=== PATIENT | male | born 1960 | race Caucasian/White ===

== ENCOUNTER 2024-06-13 16:12 | Outpatient (CLI) | payer OTHER, SELFPAY | END 2024-06-13 16:13 | disposition home or self-care (01) | LOC: AMB 06-26 04:58 | PROVIDERS: PCP Family Medicine; Visit Provider Emergency Medicine Emergency Medical Services | DX: S09.90XA Unspecified injury of head, initial encounter (principal); S81.831A Puncture wound without foreign body, right lower leg, initial encounter; W17.89XA Other fall from one level to another, initial encounter; Y92.007 Garden or yard of unspecified non-institutional (private) residence as the place of occurrence of the external cause | CPT/HCPCS: A0425; A0427 ==

== ENCOUNTER 2025-03-29 10:00 | Outpatient (RCR) | payer OTHER, SELFPAY ==
--- OUTSIDE RECORDS SUMMARY | 2024-10-06 14:51 | XMS_ITS | Clinical Summary ---
Author Organization [facility] Address [address] [place] [phone] Phone Care Team Providers Care Director Of Patient Financial Services Name Role Phone Imtiaz Cohen MD Primary Care Provider [phone] Source Comments [employer] is fully rolled out on [employer]. Last update 03/09/09.[facility] Allergies Active Allergy Reactions Criticality Noted Date Comments Codeine Nausea/Vomiting 06/13/2024 Medications * Be aware that medications may not be up to date as of this document. Always verify current medications with patient. fluticasone propionate (FLONASE) 50 mcg/act nasal suspension 1 spray by Nasal route daily as needed. Active albuterol (VENTOLIN HFA;PROVENTIL HFA;PROAIR) 108 (90 BASE) mcg/act inhalation inhaler Inhale 2 puffs every 4 hours as needed. Active tab-a-brenda oral tablet Take 1 tablet by mouth daily. Active aspirin, ASA EC, 81 mg oral tabletIndicati ons:blood clot prevention Take 2 tablets (162 mg) by mouth daily. Indications: blood clot preventionEnd date 07/14 (4wks postop) 06/18/20 24 Active melatonin 3 mg oral tabletIndicati ons:Insomnia Take 1 tablet (3 mg) by mouth every twenty-four hours. Indications: Trouble SleepingGive at 1800 06/17/20 24 Active polyethylene glycol 3350 (MIRALAX;GLYCO LAX) 17 g oral packetIndicati ons:Constipati on Take 17 g by mouth daily. Indications: ConstipationTake 1 capful to 17 gm essie mixed with full glass of water every day as directed. 09/13/20 24 Active sennosides (SENOKOT) 17.2 mg oral TABSIndication s:Constipation Take 1 tablet (17.2 mg) by mouth twice daily. Indications: Constipation 06/17/20 Active traZODone (DESYREL) 50 mg oral tablet Take 1 tablet (50 mg) by mouth at bedtime as needed for Sleep. 06/19/20 Active ibuprofen (MOTRIN;ADVIL) 600 mg oral tablet Take 1 tablet (600 mg) by mouth every 6 hours as needed for Pain.Take with food 06/20/20 Active bisacodyl (DULCOLAX) 10 mg rectal suppository 1 suppository (10 mg) by Rectal route daily as needed for Constipation. 06/29/20 Active acetaminophen (TYLENOL) 325 mg oral tabletIndicati ons:Pain Take 3 tablets (975 mg) by mouth 3 times daily. Indications: Pain 06/30/20 Active GABApentin (NEURONTIN) 400 mg oral capsuleIndicat ions:postopera tive pain Take 1 capsule (400 mg) by mouth 3 times daily. Indications: postoperative pain 06/30/20 Active hydrOXYzine (ATARAX;VISTAR IL) 25 mg oral tabletIndicati ons:pain, anxiety Take 1-2 tablets (25-50 mg) by mouth every 4 hours as needed for Anxiety or Itching (or pain). Indications: pain, anxietyDiscontinue medication 07/10/24 (72 hours prior to boles catheter removal in urology clinic) 06/30/20 Active lidocaine (LIDODERM) 5% externally patchIndicatio ns:postoperati ve pain Indications: postoperative painApply patch to most painful area right hip, NOT on incision or dressing. Patch may remain in place for up to 12 hours in any 24-hour period. 07/01/20 Active tamsulosin (FLOMAX) 0.4 mg oral capsuleIndicat ions:Bladder Dysfunction Take 1 capsule (0.4 mg) by mouth daily after meal. Indications: Dysfunction of the Urinary BladderTake 30 minutes after same meal each day. Do NOT crush or chew. 90 capsule 3 07/29/20 Active Active Problems Problem Noted Date Diagnosed Date Acute urinary retention 07/29/2024 Assessment & Plan (07/29/2024 10:22 AM CDT): Patient experienced acute urinary retention following ORIF and TOM. Patient was discharged to a senior living facility at which time patient had a successful TOV. Patient since has denied any other urinary symptoms. Patient is no longer taking narcotic pain medication and is taking Flomax daily. 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 Dislocation of right hip, initial encounter ([facility] ) 06/29/2024 Adjustment disorder with anxiety 06/24/2024 Closed displaced fracture of posterior wall of right acetabulum, initial encounter ([facility]) 06/14/2024 Encounters Date Type Department Care Team Description 09/09/2024 Documentation Only Home Equipment Services 701 Imtiaz Hahn MD 08/25/2024 Telephone Case Management Gina Lombardo, RN Care Coordination 08/19/2024 Documentation Only Home Equipment Services 701 Imtiaz Hahn MD 08/18/2024 Documentation Only Home Equipment Services 701 Imtiaz Hahn MD 08/11/2024 Nurse [facility]riage [facility] [address] [place] [phone] Jeet Reyez, RN Orders 08/09/2024 Documentation Only Unspecified Department [place] Unknown, Provider 08/03/2024 11:40 AM CDT [facility] [address] [place] [phone] Darryl Nuñez MD Closed displaced fracture of posterior wall of right acetabulum, initial encounter ([facility]) (Primary Dx); History of right hip replacement; Dislocation of right hip, initial encounter ([facility]) Discharge Disposition: Discharged to home or self care 07/29/2024 11:00 AM CDT [facility] [address] [place] [phone] Shawn Lock, RADHA Acute urinary retention (Primary Dx) Discharge Disposition: Discharged to home or self care 07/20/2024 Telephone Case Management Gina Lombardo, IBAN Care Coordination 07/13/2024 1:00 PM CDT Office Visit [facility] [address] [place] [id number] Darryl Nuñez MD Closed displaced fracture of posterior wall of right acetabulum, initial encounter ([facility]) (Primary Dx); Dislocation of right hip, initial encounter ([facility]); History of right hip replacement; Dislocation of hip prosthesis, subsequent encounter Discharge Disposition: Discharged to home or self care 07/13/2024 Telephone Case Management Gina Lombardo RN Care Coordination 07/13/2024 Travel 07/12/2024 Telephone [facility] [address] [place] [phone] Shawn Lock PA-C 07/08/2024 Telephone [facility] [address] [place] [phone] Shawn Lock PA-C from Last 3 Months Immunizations Name Administration Dates Next Due COVID-19 Vaccine Monovalent (MODERNA) 12 Years and Older 07/24/2021,06/26/2021 INFLUENZA VACCINE - MDV (6 MONTHS-ADULT) 017 Influenza Vaccine 6 Months t hrough Adult - Prefilled 10/15/2023,11/04/2022,10/01/2016 Pneumococcal Conjugate, 20-V alent Vaccine (Prevnar 20) 11/04/2022 Tetanus Toxoid, Reduced Diph theroid Toxoid Acellular Pertussis 06/13/2024,01/23/2017 Zoster Recombinant Adjuvant (Shingrix) 50 Years And Greater 10/15/2023,11/04/2022 Social History Tobacco Use Types Packs/Day Years Used Date Smoking Tobacco: Never Assessed Humiliation, Afraid, Rape, and Kick questionnair e Answer Date Recorded Within the last year, have y ou been afraid of your partner or ex-partner? No 06/29/2024 Within the last year, have y ou been humiliated or emotionally abused in other ways by your partner or ex-partner? No Within the last year, have y ou been kicked, hit, slapped, or otherwise physically hurt by your partner or ex-partner? No 06/29/2024 Within the last year, have y ou been raped or forced to have any kind of sexual activity by your partner or ex-partner? No 06/29/2024 Overall Financial Resource Strain (CARDIA) Answe r Date Recorded How hard is it for you to pa y for the very basics like food, housing, medical care, and heating? Not very hard 06/29/2024 Hunger Vital Sign Answer Date Recorded Within the past 12 months, y ou worried that your food would run out before you got the money to buy more. Never true 06/29/20 Within the past 12 months, t he food you bought just didn't last and you didn't have money to get more. Never true 06/29/2024 PRAPARE - Transportation Answer Date Re corded In the past 12 months, has l ack of transportation kept you from medical appointments or from getting medications? No 06/06 In the past 12 months, has l ack of transportation kept you from meetings, work, or from getting things needed for daily living? No 06/29/2024 Housing Stability Answer Date Recorded What is your housing situation today? 3 - I have housing 06/29/2024 Sex and Gender Information Value Date Recorded Sex Assigned at Not on file Legal Sex Male 5:09 PM CDT Gender Identity Not on file Sexual Orientation Not on file Last Filed Vital Signs Vital Sign Reading Time Taken Comments Blood Pressure 137/63 07/04/2024 8:00 AM CDT Pulse 85 07/04/2024 8:00 AM CDT Temperature 36.8 C (98.2 F) 07/04/2024 8:00 AM CDT Respiratory Rate 16 07/04/2024 8:00 AM CDT Oxygen Saturation 97% 07/04/2024 8:00 AM CDT Inhaled Oxygen Concentration - - Weight 117 kg (257 lb 15 oz) 06/26/2024 11:00 AM CDT Height 167.6 cm (5' 5.98) 06/21/2024 3:20 PM CD T Body Mass Index 41.65 06/21/2024 3:20 PM CDT Plan of Treatment Upcoming Encounters Date Type Department Care Team (Late st Contact Info) Description 01/27/2025 8:00 AM CDT [facility] [address] [id number] Shawn Lock PA-C [address] [place] [id number] Scheduled Discharge Disposition: Discharged to home or self care Health Maintenance Due Date Last Done Comments CT Colonography 1960 Colonoscopy 1960 Colorectal Cancer Screening 1960 Dental Oral Exam 1960 Dental Prophylaxis 1960 Dental X-Ray: Bitewings 1960 FIT/Cologuard 1960 Hepatitis C Screening 1960 Sigmoidoscopy 1960 iFOB/FIT 1960 Periodontal Maintenance 1974 HIV Screening 1975 HEALTH MAINTENANCE PROTOCOL 1979 Imm: COVID-19 () 06/05/2024 11/04/2022, 07/24/2021, 06/26/2021 Imm: Flu (#1) 06/05/2024 10/15/2023, 10/07, 07/07/2017, Additional history exists PREVENTATIVE VISIT 10/15/2024 10/15/2023, 11/04/2022 Lipid Screening 10/15/2028 10/15/2023 Imm: DTaP/Tdap (3 - Td or Tdap) 06/13/2034 06/13/2024, 01/23/2017 Imm: Pneumonia Peds or At-Risk less than 65 years Completed 11/04/2022 Imm: Zoster Completed 10/15/2023, 11/04/2022 Imm: HPV Aged Out No longer eligi ble based on patient's age to complete this topic Imm: HepA Aged Out No longer eligi ble based on patient's age to complete this topic Imm: HepB Aged Out No longer eligi ble based on patient's age to complete this topic Imm: Hib Aged Out No longer eligi ble based on patient's age to complete this topic Imm: Meningitis Aged Out No longer el igible based on patient's age to complete this topic Medical Devices Implanted Type Area Glass Products Inspector Device Identifier Shelf Expiration Date Model / Serial / Lot 8-Hole (1179-006-08) Implanted:Qty : 1 on 06/16/2024 by Federico Gómez MD at [facility] Plate Right: Acetabulum ALYSSIA [employer]ET [id number] / / 26mm (4835-026-01) Implanted:Qty : 1 on 06/16/2024 by Federico Gómez MD at [facility] Screw/Wilfrid lt Right: Acetabulum [employer]YSS[employer]OMET [id number] / / 45mm (4835-045-07) Implanted:Qty : 1 on 06/16/2024 by Federico Gómez MD at [facility] Screw/Wilfrid lt Right: Acetabulum [employer]ET [id number] / / 50mm (4835-050-07) Implanted:Qty : 1 on 06/16/2024 by Federico Gómez MD at [facility] Screw/Wilfrdi lt Right: Acetabulum [employer]ET [id number] / / 30mm 4827-030-01 Implanted:Qty : 1 on 06/16/2024 by Federico Gómez MD at [facility] Screw/Wilfrid lt Right: Acetabulum [employer] [id number] / / 34mm 4827-034-01 Implanted:Qty : 1 on 06/16/2024 by Federico Gómez MD at [facility] Screw/Wilfrid lt Right: Acetabulum LAYSSIA [employer]ET [id number] / / 38mm 4827-038-01 Implanted:Qty : 1 on 06/16/2024 by Federico Gómez MD at [facility] Screw/Wilfrid lt Right: Acetabulum [employer]ET [id number] / / 48mm [id number] Implanted:Qty : 1 on 06/16/2024 by Federico Gómez MD at [facility] Screw/Wilfrid lt Right: Acetabulum [employer]ET [id number] / / -3 ([id number]) Implanted:Qty : 1 on 06/16/2024 by Darryl Nuñez MD at [facility] Total Joint Head Right: Hip [employer] 10/07/2033 [id number] / / [id number] 9 ([id number]) Implanted:Qty : 1 on 06/16/2024 by Darryl Nuñez MD at [facility] Total Joint Stem Right: Hip [employer] 07/12/2028 [id number] / / [id number] Spherical Head Screw,[employer] Reflec 6.5x25mm [id number] Implanted:Qty : 1 on 06/16/2024 by Darryl Nuñez MD at [facility] Right: Hip [employer] 01/01/2034 [id number] / / [id number] Spherical Head Screw,[employer] Reflec 6.5x25mm [id number] Implanted:Qty : 1 on 06/16/2024 by Darryl Nuñez MD at [facility] Right: Hip [employer] 10/04/2033 [id number] / / [id number] Spherical Head Screw,[employer] Reflec 6.5x20mm [id number] Implanted:Qty : 1 on 06/16/2024 by Darryl Nuñez MD at [facility] Right: Hip [employer] 12/14/2033 [id number] / / [id number] Cover Scr H F/Acet Cup Thrd Reflct [id number] Implanted:Qty : 1 on 06/16/2024 by Darryl Nuñez MD at [facility] Right: Hip [employer] 04/18/2029 [id number] / / [id number] Liner Acetabular Xlpe 0 Degree X 36mm Id Implanted:Qty : 1 on 06/16/2024 by Darryl Nuñez MD at [facility] Right: Hip [employer] 06/18/2031 [id number] / / [id number] Redapt Modular Shell Implanted:Qty : 1 on 06/16/2024 by Darryl Nuñez MD at [facility] Right: Hip [employer] 06/06/2033 [id number] / / [id number] Procedures Procedure Name Priority Date/Time Associated Diagnosis Comments EXTERNAL MED REC-IMAGING 08/10/2024 11:29 AM DRILL SHARPENER from Last 3 Months Results * EXTERNAL MED REC-IMAGING (08/10/2024 11:29 AM DRILL SHARPENER) Anatomical Region Laterality Modality Other Narrative 08/10/2024 11:29 AM DRILL SHARPENER Ordered by an unspecified provider. us Provider Unknown RAD CT BODY Final Result from Last 3 Months Insurance [facility]IC [facility] Advance Directives For more information, please contact: [phone] * Full Code (Latest Code Status on File) Date Activated Date Inactivated Comments 06/30/2024 11:08 AM Question Answer Comments Does the Patient have prefer ences regarding life sustaining measures (these options only apply when the patient has a pulse): No Discussed Code Status With Whom? Not discussed * Full Code Date Activated Date Inactivated Comments 06/29/2024 4:56 PM 06/29/2024 5:13 PM Question Answer Comments Does the Patient have prefer ences regarding life sustaining measures (these options only apply when the patient has a pulse): No Discussed Code Status With Whom? Patient * Full Code Date Activated Date Inactivated Comments 06/21/2024 10:43 AM 06/29/2024 4:56 PM Question Answer Comments Does the Patient have prefer ences regarding life sustaining measures (these options only apply when the patient has a pulse): No Discussed Code Status With Whom? Patient * Full Code Date Activated Date Inactivated Comments 06/14/2024 8:34 PM 06/21/2024 10:43 AM Question Answer Comments Does the Patient have prefer ences regarding life sustaining measures (these options only apply when the patient has a pulse): No Discussed Code Status With Whom? Not discussed Care Teams Director Of Patient Financial Services Relationship Specialty Start Date End Date Imtiaz Cohen MD [address] [place] [address] PCP - General Family Medicine 06/23/24
--- OUTSIDE RECORDS SUMMARY | 2024-10-06 14:52 | XMS_ITS | Clinical Summary ---
Author Organization [employer] [facility] Address [place], [place] [address] Care Team Providers Care Inner Tube Inserter Name Role Phone Imitaz Cohen MD Primary Care Provider Allergies Active Allergy Reactions Criticality Noted Date Comments Codeine Nausea Only Medium 09/24/2009 Medications Blood Pressure Monitor KitIndications: Benign essential HTN Frequency of testin times per week. 1 Each 3 Active tadalafiL (CIALIS;ADCIRCA ) 20 mg tabletIndicatio ns:Erectile dysfunction, unspecified erectile dysfunction type Take 1 Tablet (20 mg) by mouth once daily if needed for Erectile Dysfunction. Take 30 minutes before sexual activity. 10 Tablet 10 4 Active gabapentin (Neurontin) 400 mg capsule Take 400 mg by mouth three times daily. 4 Active ibuprofen (ADVIL; MOTRIN) 600 mg tablet Take 600 mg by mouth every 6 hours if needed for Pain. 4 Active acetaminophen (TYLENOL EXTRA STRGTH) 500 mg tablet Take 2 Tablets (1,000 mg) by mouth every 8 hours if needed for Pain. Max acetaminophen dose: 4000mg in 24 hrs. 4 Active tamsulosin 0.4 mg capsuleIndicati ons:Benign localized prostatic hyperplasia with lower urinary tract symptoms (LUTS) Take 1 Capsule (0.4 mg) by mouth once daily after a meal. 90 Capsule 3 4 Active Active Problems Problem Noted Date Diagnosed Date Right Acet Fracture ORIF 06/16/24 08/29/2024 Right TOM with acet ORIF 06/16/24 08/29/2024 Obesity 10/15/2023 Benign essential HTN 11/04/2022 Erectile dysfunction 11/04/2022 Suspected sleep apnea 11/04/2022 Chronic GERD 11/04/2022 Erythema nodosum 01/28/2017 Hypermetropia 05/13/2013 Resolved Problems Problem Noted Date Diagnosed Date Resolved Date Obesity, Class II, BMI 35-39.9 11/04/2022 08/29/2024 Fever 01/28/2017 11/04/2022 Rash 01/28/2017 11/04/2022 Leukocytosis 01/28/2017 11/04/2022 Anemia 01/28/2017 11/04/2022 Hyponatremia 01/28/2017 11/04/2022 Elevated transaminase level 01/28/2017 11/04/2022 Routine adult health maintenance 12/25/2016 11/04/2022 Overview (12/25/2016): Colonoscopy 12/2016 hyperplastic polyp repeat in 10 years Encounters Date Type Department Care Team Description 09/23/2024 1:30 PM STUDENT SPECIALIST Home Care Visit [facility] [address] [place] [address] Federico Coto, PT PT - OASIS DISCHARGE 09/23/2024 Travel 09/16/2024 11:30 AM STUDENT SPECIALIST Home Care Visit [facility] [address] [place] [address] Federico Coto, PT PT - HOME VISIT 09/13/2024 10:30 AM STUDENT SPECIALIST Home Care Visit [facility] [address] [place] [address] Federico Coto, PT PT - HOME VISIT 09/13/2024 Travel 09/09/2024 10:30 AM STUDENT SPECIALIST Home Care Visit [facility] [address] [place] [address] Federico Coto, PT PT - HOME VISIT 09/09/2024 Travel 09/08/[address] [id number] Imtiaz Cohen MD Questions (Physical Therapy) 09/06/2024 11:30 AM STUDENT SPECIALIST Home Care Visit [facility] [address] [place] [phone] Federico Coto, PT PT - HOME VISIT 09/02/2024 12:30 PM STUDENT SPECIALIST Home Care Visit [facility] [address] [place] [phone] Federico Coto, PT PT - HOME VISIT 08/30/2024 2:45 PM STUDENT SPECIALIST Home Care Visit [facility] [address] [place] [phone] Federico Coto, PT PT - HOME VISIT 08/29/2024 1:40 PM STUDENT SPECIALIST Office Visit [facility] [address] [place] [address] Imtiaz Cohen MD [facility] (Hospital follow up - [facility] 06/13/2024 - 07/04/2024, [facility] 07/04/2024 - 08/16/2024, broken pelvis and infection) 08/29/2024 Travel 08/26/2024 Telephone [facility] [address] [place] [address] Imtiaz Cohen MD Questions 08/24/2024 9:45 AM STUDENT SPECIALIST Home Care Visit [facility] [address] [place] [phone] Federico Coto, PT PT - OASIS START OF CARE 08/24/2024 Plan of Care Documentation [facility] [address] [place] [address] 08/24/2024 Telephone [facility] [address] [facility] [place] [address] Federico Coto, PT Home Care 08/24/2024 Travel 08/18/2024 Transcribe Orders [facility] [address] [place] [address] Belgica Chowdhury NP 08/17/2024 Transcribe Orders [facility] [address] [place] [address] Raphael Veliz MD 08/10/2024 Lab Requisition [facility] [address] [place] [address] Raphael Veliz MD from Last 3 Months Immunizations Name Administration Dates Next Due COVID-19 vaccine (Pfizer-Bio NTech 30mcg/0.3mL) 12YO+ BIVALENT PF, MDV 11/04/2022 Influenza, IIV4 10/15/2023,11/04/2022,10/01/2016 Influenza, IIV4 (=>6mos) MDV 07/07/2017 Pneumococcal Conj 20-valent (Prevnar 20) 023 Tdap 01/23/2017 Zoster (Shingrix-RZV, recombinant) 10/15/2023, Family History Medical History Relation Name Comments Diabetes type II Brother Dementia Father in 80's or late 70's Cancer-prostate Maternal Uncle Stomach cancer Mother fatal Lung cancer Paternal Grandfather cancer Cancer-colon No Family History Relation Name Status Comments Brother Father Maternal Uncle Alive Mother Paternal Grandfather Social History Tobacco Use Types Packs/Day Years Used Date Smoking Tobacco: Former Cigarettes 1 10 0 10/05/1988 - 10/05/1998 Smokeless Tobacco: Never Tobacco Cessation:Counseling Given: No Alcohol Use Standard Drinks/Week Comments Yes 0 (1 standard drink = 0.6 oz pur e alcohol) occassional [facility] Utilities Answer Date Recorded Do you have trouble paying f or utilities (for example, heat, electricity, water, phone)? Yes 05/02/2024 PHQ-2 Answer Date Recorded PHQ-2 TOTAL SCORE 0 10/15/2023 Social Connections Answer Date Recorded Do you often feel lonely or isolated from those around you? 0 05/02/2024 Financial Resource Strain Answer Date R ecorded Difficulty of Paying Living Expenses 3 05/02/2024 Difficulty of Paying Living Expenses Not on file 05/02/2024 Food Insecurity Answer Date Recorded Do you worry your food will run out before you are able to buy more? 1 05/02/2024 Transportation Needs Answer Date Record ed Does lack of transportation keep you from medica l appointments? 1 05/02/2024 Does lack of transportation keep you from work, meetings or getting things that you need? 1 05/02/2024 Housing Stability Answer Date Recorded What is your housing situation today? 1 05/02/2024 Sex and Gender Information Value Date Recorded Sex Assigned at Not on file Legal Sex Male 7:04 AM STUDENT SPECIALIST Gender Identity Not on file Sexual Orientation Not on file Obstetrics History Last Filed Vital Signs Vital Sign Reading Time Taken Comments Blood Pressure 156/86 09/23/2024 2:14 PM STUDENT SPECIALIST Pulse 84 09/23/2024 2:14 PM STUDENT SPECIALIST Temperature 36.9 C (98.4 F) 09/23/2024 2:14 PM STUDENT SPECIALIST Respiratory Rate 18 09/23/2024 2:14 PM STUDENT SPECIALIST Oxygen Saturation 97% 09/23/2024 2:14 PM STUDENT SPECIALIST Inhaled Oxygen Concentration - - Weight 107.3 kg (236 lb 9.6 oz) 08/29/2024 1:44 PM STUDENT SPECIALIST Height 171 cm (5' 7.32) 10/15/2023 7:41 AM STUDENT SPECIALIST Body Mass Index 36.7 10/15/2023 7:41 AM STUDENT SPECIALIST Plan of Treatment Upcoming Encounters Date Type Department Care Team (Late st Contact Info) Description 10/17/2024 2:30 PM STUDENT SPECIALIST Office Visit [facility] [address] [place] [address] Imtiaz Cohen MD [address] [place] [address] 10/17/2024 2:55 PM STUDENT SPECIALIST Office Visit [facility] [address] [place] [address] Imtiaz Cohen MD [address] [place] [address] Health Maintenance Due Date Last Done Comments COVID-19 vaccine series ( season) 2024 11/04/2022, 07/24/2021, 06/26/2021 Influenza for age 50-64 06/05/2024 10/15/19 24, 11/04/2022, 07/07/2017, Additional history exists BMI (ht and wt on same day) for age 18+ 10/15/2024 10/15/2023, 12/15/2022, 11/04/2022, Additional history exists Depression screening for age 12+ 10/15/2024 10/15/2023, 11/04/2022, 11/04/2022, Additional history exists Colonoscopy through age 75 12/24/2026 12/24/2016, Tetanus booster 01/23/2027 01/23/2017 Lipids for age 45-75 10/15/2028 10/15/2023, 11/04/2022, 07/09/2017 RSV vaccine for adults or (1 - 1-dose 75+ series) 2035 Tdap Completed 01/23/2017 HIV for age 15-65 Completed 01/28/2017 Hepatitis C screening for ag e 18-79 Completed 01/30/2017 Pneumococcal series for age 50+ Completed Zoster (shingles) series for age 50+ Completed 10/15/2023, 11/04/2022 Procedures Procedure Name Priority Date/Time Associated Diagnosis Comments AEROBIC BACTERIAL CULTURE, STAIN Routine 08/10/2024 5:00 PM STUDENT SPECIALIST Encounter for change or removal of drains LIPID PANEL W REFLEX MEASURED LDL Routine 10/15/2023 8:30 AM STUDENT SPECIALIST Hyperlipidemia, unspecified hyperlipidemia type ANTI HCV Early AM 01/30/2017 7:16 AM CDT ANTI HIV 1/2 Today 01/28/2017 4:05 PM CDT COLONOSCOPY 12/24/2016 10:36 AM CDT from Last 3 Months or Most Recently Relevant to Health Maintenance Results * (ABNORMAL) AEROBIC BACTERIAL CULTURE, STAIN (08/10/2024 5:00 PM STUDENT SPECIALIST) CULTURE RESULT(A) 08/14/2024 10:23 AM STUDENT SPECIALIST [facility] CULTURE 2+ Staphylococcus aureus 08/14/2024 10:23 AM STUDENT SPECIALIST [facility] CULTURE 1+ Mixed oly present 08/14/2024 10:23 AM STUDENT SPECIALIST [facility] GRAM STAIN No Epithelial cells 08/14/2024 10:23 AM STUDENT SPECIALIST [facility] GRAM STAIN No RBCs 08/14/2024 10:23 AM STUDENT SPECIALIST [facility] GRAM STAIN No PMNs 08/14/2024 10:23 AM STUDENT SPECIALIST [facility] GRAM STAIN 2+ Gram Positive Cocci 08/14/2024 10:23 AM STUDENT SPECIALIST [facility] Other (Right Knee) Client Collect / Unknown 08/10/2024 5:00 PM STUDENT SPECIALIST 08/10/2024 5:16 PM STUDENT SPECIALIST [facility] LABORATORY - 08/14/2024 10:23 AM STUDENT SPECIALIST Mixed Oly; No beta-Strep, Strep. pneumoniae, or Pseudomonas aeruginosa Organism Antibiotic Method Susceptibility Staphylococcus aureus OXACILLIN <=0.25: S Comment:Oxacillin lombardo sceptible should not be interpreted as penicillin or amoxicillin susceptible. Staphylococcus aureus CLINDAMYCIN 0.25: S Staphylococcus aureus DOXYCYCLINE <=0.5: S Staphylococcus aureus CEFAZOLIN S Staphylococcus aureus TRIMETHOPRIM/SULF <=0.5/9.5: S Raphael Veliz MD MICROBIOLOGY Final Result [facility] [address] [place] [address], * (ABNORMAL) LIPID PANEL W REFLEX MEASURED LDL (10/15/2023 8:30 AM STUDENT SPECIALIST) CHOLESTEROL,TOTAL 214(H) 100 - 199 mg/dL 10/15/2023 4:59 PM STUDENT SPECIALIST [facility] Comment: Cholesterol, Total Reference Ranges Desirable <200 mg/dL Borderline 200-239 mg/dL High >=240 mg/dL TRIGLYCERIDES 219(H) <150 mg/dL 10/15/2023 4:59 PM STUDENT SPECIALIST [facility] HDL CHOLESTEROL 41 >40 mg/dL 4:59 PM STUDENT SPECIALIST [facility] NON-HDL CHOLESTEROL 173(H) <145 mg/dl 10/15/2023 4:59 PM STUDENT SPECIALIST [facility] CHOL/HDL RATIO 5.22(H) <4.50 10/15/2023 4:59 PM STUDENT SPECIALIST [facility] LDL CHOLESTEROL 129 <=130 mg/dL 10/15/2023 4:59 PM STUDENT SPECIALIST [facility] VLDL CHOLESTEROL 44(H) <=30 mg/dL 10/15/2023 4:59 PM STUDENT SPECIALIST [facility] PROVIDER ORDERED STATUS RANDOM 10/15/2023 4:59 PM STUDENT SPECIALIST [facility] Blood BLOOD SPECIMEN / Unknown Venipuncture / Unknown 10/15/2023 8:30 AM STUDENT SPECIALIST 10/15/2023 8:31 AM STUDENT SPECIALIST us Imtiaz Cohen MD CHEMISTRY Final Result [facility] [address] [place] [address], [place] * Anti-hepatitis C AM (01/30/2017 7:16 AM CDT) [facility] HEPATITIS C ANTIBODY Non-Reacti ve Non-Reacti ve 01/30/2017 9:38 AM CDT [facility] Blood BLOOD SPECIMEN / Unknown Butterfly / Unknown 01/30/2017 7:16 AM CDT 01/30/2017 7:37 AM CDT Narrative [facility] - 01/30/2017 9:38 AM CDT Antibodies to HCV not detected; does not exclude the possibility of exposure to HCV. us González Kwan MD SEND OUTS Final Result [facility] [address] [place] [address], * HIV 1&2 TODAY (01/28/2017 4:05 PM CDT) HIV-1/HIV-2 ANTIBODY Non-Reacti ve Non-Reacti ve 01/28/2017 8:22 PM CDT [facility] Blood BLOOD SPECIMEN / Unknown Add On / Unknown 01/28/2017 4:05 PM CDT 01/28/2017 7:49 PM CDT Narrative [facility] - 01/28/2017 8:22 PM CDT HIV-1 p24 and HIV-1/HIV-2 Ab not detected us González Kwan MD SEND OUTS Final Result [facility] [address] [place] [address], [place] * COLONOSCOPY (12/24/2016 10:36 AM CDT) 12/24/2016 10:3 6 AM CDT Narrative Transcriptions João Kauffman MD - 12/24/2016 11:38 AM CDT Patient Name: Bebeto Hernandez Procedure Date: 12/24/2016 Gender: Male Date of : 1960 Admit Type: Outpatient Procedure: Colonoscopy Proceduralist: João Kauffman MD , Jojo Ku (Nurse) Referring MD: Imtiaz Asia Cohen Indications/Pre-Op Diagnosis: Screening for colorectal malignant neoplasm, This is the patient's first colonoscopy Medications: The level of sedation administered wasmoderate Procedure Description: The patient had risks, benefits and alternatives explained to andgave informed consent. The patient had a stable cardiopulmonary status and judged an adequate candidate for conscious sedation. The [id number] was passed through the anus and advanced tothe cecum, identified by appendiceal orifice and ileocecal valve. The colonoscopy was performed without difficulty. The patient toleratedthe procedure well. The quality of the bowel preparation was excellent.The ileocecal valve, appendiceal orifice, and rectum were photographed. Complications: No immediate complications. Estimated Blood Loss & Specimen: Estimated blood loss: none. Specimen collected - Yes and sent to Laboratory Findings: The perianal and digital rectal examinations were normal. A 4 mm polyp was found in the rectum. The polyp was sessile. Thepolyp was removed with a cold snare. Resection and retrieval werecomplete. Internal hemorrhoids were found during retroflexion. The hemorrhoids were small. The exam was otherwise without abnormality on direct and retroflexion views. Impressions/Post-Op Diagnosis: - One 4 mm polyp in the rectum, removed with a cold snare. Resectedand retrieved. - Internal hemorrhoids. - The examination was otherwise normal on direct and retroflexionviews. Recommendation: - Patient has a contact number available for emergencies. The signsand symptoms of potential delayed complications were discussed with the patient. Return to normal activities tomorrow. Written discharge instructions were provided to the patient. - Resume previous diet. - Continue present medications. - Await pathology results. - Repeat colonoscopy is recommended. The colonoscopy date will be determined after pathology results from today's exam become available for review. Moderate Sedation: Moderate (conscious) sedation was administered by the endoscopy nurse and supervised by the endoscopist. The following parameters were monitored: oxygen saturation, heart rate, respiratory rate, blood pressure, adequacy of pulmonary ventilation and reponse to care. [facility] flow[facility] and nursing notes for moderate sedation details. Total physician intraservice time was 18 minutes. João Kauffman MD 12/24/2016 11:38:43 AM This report has been signed electronically. Note Initiated On: 12/24/2016 10:36 AM Procedure Code(s): --- Professional --- 50902, Colonoscopy, flexible; with removalof tumor(s), polyp(s), or other lesion(s) bysnare technique Diagnosis Code(s): --- Professional --- Z12.11, Encounter for screening formalignant neoplasm of colon K62.1, Rectal polyp K64.8, Other hemorrhoids CPT copyright 2016 [employer]. All rights reserved. The codes documented in this report are preliminary and upon roof tile layer reviewmay be revised to meet current compliance requirements. Scope In: 11:17:23 AM Scope Withdrawal Time 0 hours 10 minutes 59 seconds Scope Out: 11:33:18 AM João Kauffman MD PROCEDURE ORD Final Res ult from Last 3 Months or Most Recently Relevant to Health Maintenance Insurance [employer] Advance Directives * Full Code (Latest Code Status on File) Date Activated Date Inactivated Comments 01/28/2017 4:31 PM 01/31/2017 12:30 PM Question Answer Comments Code Status Discussion: Discussed Care Teams Inner Tube Inserter Relationship Specialty Start Date End Date Imtiaz Cohen MD [address] [place] [address] PCP - General Family Practice 12/07/16
--- OUTSIDE RECORDS SUMMARY | 2024-10-06 14:52 | XMS_ITS | Encounter Summary ---
Author Organization [facility] Address [address] [place] [address] Phone Care Team Providers Care Extrusion Former Name Role Phone Imtiaz Cohen MD Primary Care Provider [phone] Encounter Details Date Type Department Care Team (Late st Contact Info) Description 08/09/2024 Documentation Only Unspecified Department [place] Unknown, Provider Social History Tobacco Use Types Packs/Day Years [...] money to buy more. Never true 06/29/20 24 Within the past 12 months, t he [...] on file Sexual Orientation Not on file documented as of this encounter Plan of Treatment Upcoming Encounters Date Type Department Care Team (Late st Contact Info) Description 01/27/2025 8:00 AM CDT [facility] [address] [address] Shawn Lock, PATereseC [address] [place] [address] Scheduled Discharge Disposition: Discharged to home or self care documented as of this encounter Procedures Procedure Name Priority Date/Time Associated Diagnosis Comments EXTERNAL MED REC-IMAGING 08/10/2024 11:29 AM ADMINISTRATIVE SUPPORT TECHNICIAN documented in this encounter Results * EXTERNAL MED REC-IMAGING (08/10/2024 11:29 AM ADMINISTRATIVE SUPPORT TECHNICIAN) Anatomical Region Laterality Modality Other Narrative 08/10/2024 11:29 AM ADMINISTRATIVE SUPPORT TECHNICIAN Ordered by an unspecified provider. us Provider Unknown RAD CT BODY Final Result documented in this encounter Visit Diagnoses Not on filedocumented in this encounter Care Teams Extrusion Former Relationship Specialty Start Date End Date Imtiaz Cohen MD [address] [place] [address] PCP - General Family Medicine 06/23/24 documented as of this encounter
--- OUTSIDE RECORDS SUMMARY | 2024-10-06 14:52 | XMS_ITS | Encounter Summary ---
Author Organization [facility] Address [address] [place] [address] Phone Care Team Providers Care Senior Electrical Controls Engineer Name Role Phone Imtiaz Cohen MD Primary Care Provider [phone] Encounter Details Date Type Department Care Team (Late st Contact Info) Description 09/09/2024 Documentation Only Home Equipment Services [address] [facility] Imtiaz Cohen MD [address] [place] [address] Social History Tobacco Use Types Packs/Day Years [...] on file documented as of this encounter Progress Notes * Porsha English [facility] - 09/09/2024 2:02 PM CST DME NOTE The order was sent to [facility] at fax [phone], phone [phone]. [facility] will contact the patient with delivery date and time. Porsha English [facility], 09/09/2024 2:02 PM ER IN CHANCERY documented in this encounter Plan of Treatment Upcoming Encounters Date Type Department Care Team (Late st Contact Info) Description 01/27/2025 8:00 AM CDT [facility] [address] [place] [address] Shawn Lock PA-C [address] [address] Scheduled Discharge Disposition: Discharged to home or self care documented as of this encounter Visit Diagnoses Not on filedocumented in this encounter Care Teams Senior Electrical Controls Engineer Relationship Specialty Start Date End Date Imtiaz Cohen MD [address] [place] [address] PCP - General Family Medicine 06/23/24 documented as of this encounter
--- OUTSIDE RECORDS SUMMARY | 2024-10-06 14:52 | XMS_ITS | Referral Summary ---
Author Organization [facility] [place] Address [address] [facility] [place] [address] Phone Care Team Providers Care Nitro Worker Name Role Phone Imtiaz Cohen MD Primary Care Provider [phone] Source Comments [employer] is fully rolled out on [employer]. Last update 03/09/09.[place] [employer] Encounters Date Type Department Care Team Description 09/09/2024 Documentation Only [facility] 08/25/2024 Telephone Case Management Gina Lombardo, RN Care Coordination 08/19/2024 Documentation Only [facility] 08/18/2024 Documentation Only Home [facility] Services [facility] Im[facility] France MD 08/11/2024 Nurse Triage [facility] [address] [place] [phone] Jeet Reyez, RN Orders 08/09/2024 Documentation Only Unspecified Department [place] Unknown, Provider 08/03/2024 11:40 AM CDT [facility]medicine [facility] [address] [place] [phone] Darryl Nuñez MD Closed displaced fracture of posterior wall of right acetabulum, initial encounter (CMS/HHS) (Primary Dx); History of right hip replacement; Dislocation of right hip, initial encounter ([facility]) Discharge Disposition: Discharged to home or self care 07/29/2024 11:00 AM CDT [facility] [address] [place] [phone] Shawn Lock PA-C Acute urinary retention (Primary Dx) Discharge Disposition: Discharged to home or self care 07/20/2024 Telephone Case Management Gina Lombardo, IBAN Care Coordination 07/13/2024 Telephone Case Management Gina Lombardo, IBAN Care Coordination 07/13/2024 Travel 07/13/2024 1:00 PM CDT Office Visit [facility] [address] [place] [phone] Darryl Nuñez MD Closed displaced fracture of posterior wall of right acetabulum, initial encounter (CMS/HHS) (Primary Dx); Dislocation of right hip, initial encounter ([facility]); History of right hip replacement; Dislocation of hip prosthesis, subsequent encounter Discharge Disposition: Discharged to home or self care 07/12/2024 Telephone [facility] [address] [place] [phone] Shawn Lock PA-C 07/08/2024 Telephone [facility] [address] [place] [phone] Shawn Lock PA-C from Last 3 Months Allergies Active Allergy Reactions Criticality Noted Date [...] glass of water every day as directed. 06/17/20 Active sennosides (SENOKOT) 17.2 mg oral TABSIndication [...] crush or chew. 90 capsule 3 07/29/20 24 Active Active Problems Problem Noted Date Diagnosed Date Acute urinary retention 07/29/2024 Assessment & Plan (07/29/2024 10:22 AM CDT): Patient experienced acute urinary retention following ORIF and TOM. Patient was discharged to a long-term facility at which time patient had a [...] 06/29/2024 Dislocation of right hip, initial encounter ([facility] ) 06/29/2024 Adjustment disorder with anxiety 06/24/2024 Closed displaced fracture of posterior wall of right acetabulum, initial encounter ([facility] 06/14/2024 Immunizations Name Administration Dates Next Due COVID-19 [...] [facility] [address] [address] Shawn Lock PA-C [address] [place] [id number] Scheduled Discharge Disposition: Discharged to home or self care Medical Devices Implanted Type Area Babysitter Device Identifier Shelf Expiration Date Model / Serial / Lot 8-Hole (1179-006-08) Implanted:Qty : 1 on 06/16/2024 by Federico Gómez MD at [facility] Plate Right: Acetabulum ALYSSIA [employer]OMET [id number] / / 26mm (4835-026-01) Implanted:Qty : 1 on 06/16/2024 by Federico Gómez MD at [facility] Screw/Wilfrid lt Right: Acetabulum ALYSSIA [employer]OMET [id number] / / 45mm (4835-045-07) Implanted:Qty : 1 on 06/16/2024 by Federico Gómez MD at [facility] Screw/Wilfrid lt Right: Acetabulum ALYSSIA [employer]OMET [id number] / / 50mm (4835-050-07) Implanted:Qty : 1 on 06/16/2024 by Federico Gómez MD at [facility] Screw/Wilfrid lt Right: Acetabulum ALYSSIA [employer]OMET [id number] / / 30mm 4827-030-01 Implanted:Qty : 1 on 06/16/2024 by Federico Gómez MD at [facility] Screw/Wilfrid lt Right: Acetabulum [employer]ET [id number] / / 34mm 4827-034-01 Implanted:Qty : 1 on 06/16/2024 by Federico Gómez MD at [facility] Screw/Wilfrid lt Right: Acetabulum [employer]ET [id number] / / 38mm 4827-038-01 Implanted:Qty : 1 on 06/16/2024 by Federico Gómez MD at [facility] Screw/Wilfrid lt Right: Acetabulum [employer]ET [id number] / / 48mm 4827-048-01 Implanted:Qty : 1 on 06/16/2024 by Federico Gómez MD at [facility] Screw/Wilfrid lt Right: Acetabulum ALYSSIA [employer]OMET [id number] / / -3 ([id number]) Implanted:Qty : 1 on 06/16/2024 by Darryl Nuñez MD at [facility] Total Joint Head Right: Hip [employer] 10/07/2033 [id number] / / [id number] Size 9 ([id number]) Implanted:Qty : 1 on 06/16/2024 by Darryl Nuñez MD at [facility] Total Joint Stem Right: Hip [employer] 07/12/2028 [id number] / / [id number] Spherical Head Screw,Ch[employer]hew Reflec 6.5x25mm [id number] Implanted:Qty : 1 on 06/16/2024 by Darryl Nuñez MD at [facility] Right: Hip [employer] 01/01/2034 [id number] / / [id number] Spherical Head Screw,[employer]hew Reflec 6.5x25mm [id number] Implanted:Qty : 1 on 06/16/2024 by Darryl Nuñez MD at [facility] Right: Hip [employer] 10/04/2033 [id number] / / [id number] Spherical Head Screw,[employer]hew Reflec 6.5x20mm [id number] Implanted:Qty : 1 on 06/16/2024 by Darryl Nuñez MD at [facility] Right: Hip [employer] 12/14/2033 [id number] / / [id number] Cover Scr H F/Acet Cup Thrd Reflct [id number] Implanted:Qty : 1 on 06/16/2024 by Darryl Nuñez MD at [facility] Right: Hip [employer] 04/18/2029 [id number] / / [id number] Liner Acetabular Xlpe 0 Degree X 36mm Id Implanted:Qty : 1 on 06/16/2024 by Darryl uNñez MD at [facility] Right: Hip [employer] 06/18/2031 [id number] / / [id number] Redapt Modular Shell Implanted:Qty : 1 on 06/16/2024 by Darryl Nuñez MD at [facility] Right: Hip [employer] 06/06/2033 [id number] / / [id number] Procedures Procedure Name Priority Date/Time Associated Diagnosis Comments EXTERNAL MED REC-IMAGING 08/10/2024 11:29 AM HUMAN FACTORS SPECIALIST from Last 3 Months Results * EXTERNAL MED REC-IMAGING (08/10/2024 11:29 AM HUMAN FACTORS SPECIALIST) Anatomical Region Laterality Modality Other Narrative 08/10/2024 11:29 AM HUMAN FACTORS SPECIALIST Ordered by an unspecified provider. us Provider Unknown RAD CT BODY Final Result from Last 3 Months Insurance MEDIC STATE FUND STATE FUND Advance Directives For more information, please contact: [phone] * Full Code (Latest Code Status on [...] Status With Whom? Not discussed Care Teams Nitro Worker Relationship Specialty Start Date End Date Imtiaz [place] [address] [place] [address] PCP - General Family Medicine 06/23/24
--- OUTSIDE RECORDS SUMMARY | 2024-10-06 14:52 | XMS_ITS | Encounter Summary ---
Author Organization [facility] Address [address] [place] [address] Phone Care Team Providers Care Method Consultant Name Role Phone Imtiaz Cohen MD Primary Care Provider [phone] Reason for Visit * Reason Onset Date Comments Care Coordination 08/25/2024 Encounter Details Date Type Department Care Team (Late st Contact Info) Description 08/25/2024 Telephone Case Management Gina Lombardo, IBAN [address] [place] [address] Care Coordination Social History Tobacco Use Types Packs/Day Years [...] on file documented as of this encounter Miscellaneous Notes * Telephone Encounter - Gina Phillips RN - 08/25/2024 2:58 PM [employer] D/A: Needs shoe horn and sock tool, which he plans on ordering from [place]. He has walker, shower chair, Receiving home PT from [facility] then will switch to outpt PT when appropriate. Pt and both feel good about being home, feel it is going very well. This initial injury is work related, pt does have workers comp case hardener. R/P: No current needs, will follow peripherally as pt has workers comp case hardener. Veronica Phillips RN, BSN, CCM, SCRN Clinical Coordinator [facility] Ofc:[phone] S A REGIONAL [employer]IVERS documented in this encounter Plan of Treatment Upcoming Encounters Date Type Department Care Team (Late st Contact Info) Description 01/27/2025 8:00 AM CDT [facility]medicine [facility] [address] [phone] Shawn Lock PATereseC [address] [phone] Scheduled Discharge Disposition: Discharged to home or self care documented as of this encounter Visit Diagnoses Not on filedocumented in this encounter Care Teams Method Consultant Relationship Specialty Start Date End Date Imtiaz Cohen MD [address] [place] [address] PCP - General Family Medicine 06/23/24 documented as of this encounter
--- NOTE | 2024-10-12 17:53 | PT.OPEX ---
PT [place] Outpatient Eval PT [facility] Outpatient Eval Start: 10/12/24 14:35 Freq: Status: Active Protocol: Document 10/12/24 14:36 CARLOS (Rec: 10/12/24 17:51 CARLOS [id number]) E-signed By Janell Boyer PT Physical Therapy Outpatient Evaluation Insurance Information Insurance Name Gregory Montejo Medical Diagnosis RIGHT ACETABULAR FX S/P RIGHT ORIF AND TOM ( POSTERIOR APPROACH) 06/16/24 Treating Diagnosis DECONDITIONING DIFFICULTY AMB WEAKNESS Referring MD DR. HERNANDEZ Subjective Preferred Name FIOR Stuart PATIENT IS ACCOMPANIED BY HIS OSEAS BOLAND AMB WITH ROLLATOR. 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 HE EXPERIENCED QUITE A FEW SET BACKS INCLUDING MULTIPLE DISLOCATION/SUBLUXATIONS (3) AND DISLOCATION /RELOCATION (1 ), STAFF INFECTION FROM SCREWS ASSOCIATED WITH TRACTION PRIOR TO INITIAL SURGERY, AND LYMPHEDEMA WHICH IS CONCURRENTLY BEING TREATED BY OT. HE HAS RECENTLY BEEN DISCHARGED FROM HOME HEALTH PHYSICAL THERAPY 09/26/24 AND REPORTS CONSISTENT PERFORMANCE OF HIS CURRENT HEP PROVIDED BY HIS PREVIOUS PT. HE C/O PAIN WITH COMMUNITY AMB, PROLONGED STDG, AND DIFFICULTY TRANSFERRING IN/OUT OF FLAG SIGNALMAN SIDE>PASSENGER SIDE OF CAR. 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 HIS GOALS IS TO RETURNING TO HIS LIVELYHOOD W/ O RESTRICTIONS. HE REPORTS WALKING TO THE MAILBOX AND BACK ~300FT ON UNEVEN SURFACES WITH IS ROLLATOR AND USING HIS SPC FOR HOUSEHOLD AMB WELL SHORT TRIPS BACK AND FORTH FROM VEHICLE. Pain Comments 0-2/10 AT REST/ 6/10 WITH OVERUSE Date of Surgery (If applicable) 06/16/24 Precautions Treatment Precautions/Contraindications POSTERIOR HIP PRECAUTIONS; H/O STAFF INFECTION, CURRENT LYMPHEDEMA RLE Weight Bearing Status Full Weight Bearing Therapy Limitations/Systems Review Not Limited Objective Other/Pertinent Objective KNEE ROM: WFL HIP ROM Flexion: SUPINE 76 Extension: SIDELYING 5 Internal Rotation: SEATED 12 External Rotation SEATED 26 Abduction SUPINE 26 LLE MMT: Hip flexion: R 4+/5 Hip Extension: R 4/5 Hip abduction: R 3+/5 knee extension: R 5/5 Knee Flexion: R 5/5 JOINT MOBILITY/PALPATION: LATERAL HIP POINT TENDERNESS ABOUT GLUT MED AND GREATER TROCHANTER; MOD JOINT HYPOMOBILITY ARTHROKINEMATICS TX: Functional Test Performed & Score 5 STS 35 SEC W/BUE ASSIST MCTSB: 30/6/0/0 LINDSEY (This score is associated with almost 100% fall risk while the patient at the moment may be requiring assistance in performing certain activities of daily living such as walking) Assessment Assessment/Impression PATIENT IS A 64YO REFERR[address] BY [address]. HERNANDEZ TO EVAL AND TREAT S/P RIGHT TOM POSTERIOR APPROACH (06/16/24) AND ORIF D/ T ACETABULAR FRACTURE. PATIENT DEMONSTRATES SIGNS AND SYMPTOMS CONSISTENT WITH HEALING TOM/PELVIC FRACTURE, CONTRIBUTING TO THEIR FUNCTIONAL IMPAIRMENTS OF LIMITED AMB, UNSTEADINESS, DIFFICULTY WITH STAIRS, SQUATTING, BENDING, AND STOOPING, UNSTEADY GAIT. PATIENT HAS NOTABLE OBJECTIVE FINDING INCLUDING DECREASED HIP ROM, STRENGTH, BALANCE, AND DECONDITIONING WHICH ALL ARE CONTRIBUTING TO THE CLINICAL IMPRESSION. PATIENT IS A GOOD CANDIDATE FOR SKILLED PHYSICAL THERAPY TO ADDRESS AFOREMENTIONED DEFICITS ABOVE IN ORDER TO RETURN TO ASYMPTOMATIC STATUS, UNRESTRICTED MVMTS, AND PRIOR LEVEL OF FUNCTION. INTERVENTION IS NECESSARY BY WAY OF THERAPEUTIC EXERCISES, MANUAL THERAPY, NEUROMUSCULAR EDUCATION, AND STABILIZATION/ PROPRIOCEPTION. PLEASE REFER TO APPROPRIATE SECTION WITHIN THIS EVALUATION FOR COMPLETE LIST OF GOALS AND PLAN OF CARE . DISCHARGE PLAN AND CRITERIA IS FOR PATIENT TO ACHIEVE THE GOALS LISTED BELOW OR UNTIL MAX POTENTIAL MET. PATIENT VERBALIZED UNDERSTANDING AND AGREEABLE TO POC, FREQ, AND GOALS ESTABLISHED. Primary Functional Limitations GAIT ON A VARIETY OF SURFACES UNASSISTED STAIRS SQUATTING PROLONGED STDG CARRYING BENDING LIFTING Plan of Care Rehabilitation Potential Good Physical Therapy Goals 1. DECREASE R HIP/THIGH PAIN TO </3/10 WITH DAILY ACTIVITIES AND WITH THE PROGRESSION OF PHYSICAL THERAPY PROGRAM OVER THE NEXT 3-4 WEEKS 2. IMPROVE R HIP ROM TO WFL OVER THE NEXT 4-6 WEEKS FOR IMPROVED GAIT MECHANICS, RETURN TO TRANSFERS W/O ASSISTANCE AND WITH EASE, AND RETURN TO ASCENDING/DESCENDING STAIRS WITH RECIPROCAL GAIT 3. IMPROVE 5 STS SCORE FROM 35SEC WITH BUE ASSIST TO 15 SEC W/O BUE ASSIST AND LINDSEY FROM TO 40/ OVER THE NEXT 8-10 WEEKS FOR IMPROVED SAFETY WITH DAILY ACTIVITIES AND DECREASED RISK OF FALLS. 4. IMPROVE CORE/LE COMPLEX STRENGTH OVER THE NEXT 8 -10 WEEKS FOR RETURN TO TRANSFERS WITH EASE, NORMAL GAIT WITHOUT AD, AND STANDING/WALKING > 15MIN WITHOUT A FLARE UP OF PAIN 5. PATIENT WILL BE INDEPENDENT WITH HIS HEP WITHIN 8-12 WEEKS FOR PROGRESSION TOWARD ABOVE GOALS, ONGOING IMPROVEMENT OF PAIN/SYMPTOMS, ROM, STRENGTH, AND MOBILITY TO RETURN TO DAILY ACTIVITIES AND FAMILY CENTERED ACTIVITIES W/O FLARE UP OF PAIN/SYMPTOMS Coordination/Communication With Referral Source,Residential Construction Instructor ( [employer]) Treatment Plan/Direct Interventions Electrical Stimulation,Gait Training,Ice/Cold/ Vasopneumatic,Joint Mobilization,Manual Therapy, Neuromuscular Re-ed,Self-Care/ Home Management,Therapeutic Activities,Therapeutic Exercises Frequency/Duration 1-2X/WK 8 - 12 WEEKS Patient Will Be Discharged From Therapy Completion of LTG(s), Independently Progressing Evaluation Billing Untimed Code Treatment Minutes 25 PT Eval No Charge No Complexity Moderate Certification Information Provider Signature Required Yes Provider Signature Shows Agreement With POC & Medical Necessity Physician NPI Number Write NPI# Here Physician Comment/Change : Physician Signature & Date Requested Please Sign/Date Here
== END 2025-04-26 15:05 | disposition home or self-care (01) ==
PROVIDERS: PCP Family Medicine; Visit Provider Family Medicine
DX: I89.0 Lymphedema, not elsewhere classified (principal); Z96.641 Presence of right artificial hip joint; Z87.81 Personal history of (healed) traumatic fracture; R53.81 Other malaise; R22.43 Localized swelling, mass and lump, lower limb, bilateral; Z51.89 Encounter for other specified aftercare
CPT/HCPCS: 97110; 97140; 97162; 97165; 97535; X5282